=== PATIENT | female | born 1955 | race African-American/Black ===

== ENCOUNTER → 2016-08-21 | Outpatient (CLI) | payer BC ==
[~2016-08-21] MED LIST: ASPEC81 PO
== END | disposition home or self-care (01) ==
LOC: C.PAPS 12:09
PROVIDERS: ATTEND Obstetrics & Gynecology
DX: Z01.419 Encounter for gynecological examination (general) (routine) without abnormal findings (principal)

== ENCOUNTER → 2016-12-19 | Outpatient (CLI) | payer BC ==
--- NOTE | 2016-12-19 10:31 | DIAGNOSTIC IMAGING REPORT ---
LEFT KNEE INCLUDING BILATERAL STANDING AP VIEWS CLINICAL HISTORY: LEFT KNEE PAIN COMPARISON: None. DISCUSSION: No fractures are visualized. There are no erosive or destructive changes. There are mild degenerative changes within the patellofemoral joint. IMPRESSION: Minor degenerative change. No fractures or destructive lesions are visualized. Electronically signed by: Fercho Nielsen M.D. 12/19/2016 10:30 AM Dictated Date/Time: 12/19/2016 10:29 AM
== END | disposition home or self-care (01) ==
LOC: C.RDSM 10:24
PROVIDERS: ATTEND Physician Assistant
DX: M25.562 Pain in left knee (principal)

== ENCOUNTER → 2017-07-24 | Outpatient (CLI) | payer BC ==
--- NOTE | 2017-07-24 14:07 | DIAGNOSTIC IMAGING REPORT ---
RIGHT FOOT 3 VIEWS CLINICAL HISTORY: Right foot pain of several days' duration. No reported history of trauma. FINDINGS: 3 views of the right foot are obtained. No prior studies are available for comparison at the time of dictation. The skeletal structures are well mineralized for age. No fracture is seen. Mild arthritic change is noted at the first metatarsophalangeal joint. The joint spaces are otherwise preserved. Mild cystic degenerative change is suggested in the base of the calcaneus on the oblique view. The overlying soft tissues are within normal limits. IMPRESSION: No acute bony abnormality is seen in the right foot. Electronically signed by: Dewayne Gonzalez M.D. 07/24/2017 2:06 PM Dictated Date/Time: 07/24/2017 2:04 PM
== END | disposition home or self-care (01) ==
LOC: C.RDSM 12:34
PROVIDERS: ATTEND Physician Assistant
DX: R42 Dizziness and giddiness (principal); M19.071 Primary osteoarthritis, right ankle and foot; M79.671 Pain in right foot